=== PATIENT | female | born 1955 ===

== ENCOUNTER 2017-09-27 05:00 | Emergency (ER) | payer OTHER ==
--- NOTE | 2017-09-27 05:43 | ED PDOC ---
HPI: Abdomen Time Seen by Provider: 09/27/17 05:30 Chief Complaint (Nursing): Chest Pain Chief Complaint (Provider): abdominal pain History Per: Patient, Family History/Exam Limitations: no limitations Onset/Duration Of Symptoms: Hrs (7) Current Symptoms Are (Timing): Still Present Location Of Pain/Discomfort: RUQ, Epigastric, LUQ Quality Of Discomfort: "Pain" Associated Symptoms: Back Pain, Chest Pain Additional Complaint(s): 62 y/o female presents with family for evaluation of persistent upper abdominal pain x 7 hours. Patient states pain radiates to chest and upper back. Denies fever, nausea/vomiting, shortness of breath, palpitations, changes in bowel movements, urinary symptoms, recent travel, sick contacts. Past Medical History Reviewed: Historical Data, Nursing Documentation, Vital Signs Vital Signs: Last Vital Signs Temp 98.7 F 09/27/17 05:26 Pulse 69 09/27/17 05:26 Resp 16 09/27/17 05:26 BP 173/82 H 09/27/17 05:26 Pulse Ox 99 09/27/17 05:45 - Medical History PMH: No Chronic Diseases - Surgical History Surgical History: No Surg Hx - Family History Family History: States: No Known Family Hx - Living Arrangements Living Arrangements: With Family - Social History Current smoker - smoking cessation education provided: No - Allergies Allergies/Adverse Reactions: Allergies Allergy/AdvReac Type Severity Reaction Status Date / Time No Known Allergies Allergy Verified 09/27/17 05:19 Review of Systems ROS Statement: Except As Marked, All Systems Reviewed And Found Negative Cardiovascular: Positive for: Chest Pain Gastrointestinal: Positive for: Abdominal Pain Musculoskeletal: Positive for: Back Pain Physical Exam - Reviewed Nursing Documentation Reviewed: Yes Vital Signs Reviewed: Yes - Physical Exam Appears: Positive for: Well, Non-toxic, No Acute Distress Head Exam: Positive for: ATRAUMATIC, NORMAL INSPECTION, NORMOCEPHALIC Skin: Positive for: Normal Color Eye Exam: Positive for: Normal appearance ENT: Positive for: Normal ENT Inspection Cardiovascular/Chest: Positive for: Regular Rate, Rhythm Respiratory: Positive for: Normal Breath Sounds Gastrointestinal/Abdominal: Positive for: Bowel Sounds, Soft, Tenderness ( epigastric, RUQ, LUQ) Back: Positive for: Normal Inspection Extremity: Positive for: Normal ROM Neurologic/Psych: Positive for: Alert, Oriented (x3) - ECG ECG: Positive for: Viewed By Me (reviewed by ED attending) ECG Rhythm: Positive for: Sinus Rhythm O2 Sat by Pulse Oximetry: 99 - Progress ED Course And Treament: labs, urine, chest/abd/pelvis CT Disposition - Clinical Impression Clinical Impression: Abdominal pain, Chest pain, Back pain - Disposition Disposition Time: 06:00 Condition: STABLE Forms: [facility] (Bolivian) Patient Signed Over To: Federico Jennings Handoff Comments: pending labs, imaging
[2017-09-27 06:22] LABS: BASO % 0.3 % (0.0-2.0); EOS % 0.1 % (0.0-4.0); HEMOGLOBIN 14.1 g/dL (12.0-16.0); LYMPH # 1.1 K/uL (1.0-4.3); LYMPH % 10.3 % (20.0-40.0); MEAN CELL VOLUME 85.6 fl (81.0-99.0); MEAN CORPUSCULAR HEMOGLOBIN 28.9 pg (27.0-31.0); MEAN CORPUSCULAR HGB CONC 33.7 g/dL (33.0-37.0); MEAN PLATELET VOLUME 9.5 fl (7.2-11.7); MONO # 0.3 K/uL (0.0-0.8); MONO % 3.2 % (0.0-10.0); NEUT # 9.3 K/uL (1.8-7.0); NEUT % 86.1 % (50.0-75.0); NRBC % 0.1 % (0.0-0.0); RBC 4.89 Mil/uL (3.80-5.20); RED CELL DISTRIBUTION WIDTH 13.4 % (11.5-14.5); WHITE BLOOD COUNT 10.8 K/uL (4.8-10.8)
[2017-09-27 06:32] LABS: ALB/GLOB RATIO 1.5 (1.0-2.1); ALBUMIN 4.9 g/dL (3.5-5.0); ALT/SGPT 13 U/L (9-52); AST/SGOT 26 U/L (14-36); BLOOD UREA NITROGEN 10 mg/dl (7-17); CALCIUM 9.4 mg/dL (8.4-10.2); GFR AFRICAN-AMERICAN > 60; GFR NON-AFRICAN AMERICAN > 60; LIPASE 79 U/L (23-300)
[2017-09-27 06:43] LABS: URINE BACTERIA OCC (<OCC); URINE BILIRUBIN NEGATIVE (NEGATIVE); URINE BLOOD NEGATIVE (NEGATIVE); URINE CLARITY CLOUDY (Clear); URINE COLOR YELLOW (YELLOW); URINE GLUCOSE (UA) 50 mg/dL (Normal); URINE LEUKOCYTE ESTERASE NEG Leu/uL (Negative); URINE PROTEIN 30 mg/dL (NEGATIVE); URINE UROBILINOGEN 0.2-1.0 mg/dL (0.2-1.0)
[2017-09-27] MEDS ORDERED: Iodixanol 320 MG/ML 100 ML BOTTLE IV ONE (07:25)
--- NOTE | 2017-09-27 08:26 | CT ---
PROCEDURE: CT Angiography Chest, Abdomen and Pelvis with and without intravenous contrast HISTORY: chest,upper abd pain, upper back pain COMPARISON: None. TECHNIQUE: Contiguous axial images of the chest, abdomen and pelvis were obtained in the phase of aortic enhancement. A noncontrast enhanced CT of the chest was also obtained to evaluate for possible intramural thrombus. Coronal and sagittal reformats were generated. IV dose administered: 100 cc of Visipaque Radiation dose: Total exam DLP = 459 mGy-cm. This CT exam was performed using one or more of the following dose reduction techniques: Automated exposure control, adjustment of the mA and/or kV according to patient size, and/or use of iterative reconstruction technique. FINDINGS: CT ANGIOGRAPHY OF THE CHEST WITH & WITHOUT CONTRAST: AORTA (CHEST AND ABDOMEN): The thoracic and abdominal aorta are unremarkable, without aneurysm, dissection or rupture. No intramural thrombus identified in the thoracic aorta on the non-contrast ct of the chest. The celiac axis, superior mesenteric artery, inferior mesenteric artery and the renal arteries are widely patent. The pelvic arteries are unremarkable. LUNGS: Clear. No nodule, mass or consolidation. MEDIASTINUM: Unremarkable. Normal caliber aorta and pulmonary arterial trunk. No aortic dissection. Normal size heart. LYMPH NODES: Unremarkable. PLEURA: Unremarkable. No pneumothorax. No pleural fluid. BONES: Unremarkable. OTHER FINDINGS: None. CT ANGIOGRAPHY OF THE ABDOMEN AND PELVIS WITH CONTRAST: LIVER: Unremarkable. No gross lesion or ductal dilatation. GALLBLADDER AND BILE DUCTS: 12 mm gallstone. Moderate distention of the gallbladder PANCREAS: Unremarkable. No gross lesion or ductal dilatation. SPLEEN: Unremarkable. ADRENALS: Unremarkable. No mass. KIDNEYS AND URETERS: Unremarkable. No hydronephrosis. No solid mass. VASCULATURE: Unremarkable. No aortic aneurysm. STOMACH AND BOWEL: Unremarkable. No obstruction. No gross mural thickening. APPENDIX: Normal appendix. PERITONEUM: Unremarkable. No free fluid. No free air. LYMPH NODES: Unremarkable. No enlarged lymph nodes. BLADDER: Unremarkable. REPRODUCTIVE: Unremarkable. BONES: No acute fracture. OTHER FINDINGS: None. IMPRESSION: No evidence of aortic dissection or aneurysm Moderately distended gallbladder containing a 12 mm stone
[2017-09-27 08:42] VITALS: RESP 19; O2SAT 98
--- NOTE | 2017-09-27 10:57 | ED PDOC ---
- Laboratory Results Result Diagrams: 09/27/17 06:00 09/27/17 06:00 - ECG O2 Sat by Pulse Oximetry: 98 Medical Decision Making Medical Decision Making: Afebrile, WBC, LFTs nl. Pain improved. Will DC on pepcidand surgical f/u. Disposition - Clinical Impression Clinical Impression: Abdominal pain, Chest pain, Back pain, Cholelithiasis - POA Present On Arrival: None - Disposition Referrals: Kwadwo Shafer MD [Staff Provider] - Disposition: Routine/Home Disposition Time: 10:56 Condition: FAIR Prescriptions: Famotidine [Pepcid] 20 mg PO Q12 #20 tab Lactulose 20 gm PO DAILY #1 solution Instructions: Gallstones Forms: [facility] (Swazi) Print Language: MONGOLIAN
[2017-09-27 11:06] VITALS: BP 128/76; PULSE 78; TEMP 98
--- NOTE | 2017-09-27 11:14 | US ---
Date of service: 09/27/2017 HISTORY: RUQ pain COMPARISON: None. TECHNIQUE: Sonographic evaluation of the right upper quadrant of the abdomen. FINDINGS: LIVER: Measures 15.3 cm in length. Patent portal vein. Portal venous flow: Hepatopetal. Unremarkable echogenicity of the liver parenchyma. No mass. No intrahepatic bile duct dilatation. GALLBLADDER: Cholelithiasis. Negative study for gallbladder wall thickening, pericholecystic fluid, sonographic Santos's sign. COMMON BILE DUCT: Measures 9.1 mm. Dilated common bile duct without intrahepatic bile duct dilatation. No stones identified within the bile ducts. . PANCREAS: Unremarkable as visualized. No mass. No ductal dilatation. RIGHT KIDNEY: Measures 4.1 x 9.7 cm in length. Normal echogenicity. No calculus, mass, or hydronephrosis. AORTA: No aneurysmal dilatation. IVC: Unremarkable. OTHER FINDINGS: None . IMPRESSION: Cholelithiasis. No sonographic evidence of acute cholecystitis.
== END 2017-09-27 11:06 | disposition home or self-care (01) ==
LOC: H.ER 05:00
DX: K80.20 Calculus of gallbladder without cholecystitis without obstruction (principal); R07.89 Other chest pain; M54.9 Dorsalgia, unspecified
CPT/HCPCS: 71275; 74174; 76705; 80053; 81003; 83690; 84484; 85025; 96374; 99285; J2405; Q9967